=== PATIENT | female | born 1955 | race American Indian/Alaskan Native ===

== ENCOUNTER 2019-07-22 17:41 | Inpatient (IN) | payer MEDICARE ==
[2019-07-22] MEDS ORDERED: MORPHINE IV ONE (17:59)
--- NOTE | 2019-07-22 18:05 | Emergency Department Report ---
ED Chest Pain HPI - General Stated Complaint: CHEST PAIN Time Seen by Provider: 07/22/19 17:56 Source: patient, EMS Mode of arrival: Stretcher Limitations: No Limitations - History of Present Illness Initial Comments: Patient is a 63-year-old female that presents emergency room with complaints of chest pain. Patient states the chest pain is in her left chest. Patient states on [place]. Patient states the pain is 10 out of 10. Patient states she was given aspirin by EMS on the way here. Patient states she is currently at [facility] for psychiatric help. Patient states she uses cocaine at times. Patient states she is taking all of her medications. 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 Patient states had a CABG and stents. MD Complaint: chest pain -: Sudden Onset: during rest Pain Location: left chest Pain Radiation: none Severity: severe Severity scale (0 -10): 10 Quality: sharp Consistency: constant Improves With: rest Worsens With: exertion re: denies: nausea, vomting, diaphoresis, dyspnea, sense of impending doom Other Symptoms: denies: cough, fever, syncope, rash, acid taste in mouth, leg swelling, palpitations, burping Treatments Prior to Arrival: aspirin Aspirin use within the Past 7 Days: (1) Yes - Related Data On Oral Contraceptives: No Allergies Allergy/AdvReac Type Severity Reaction Status Date / Time Penicillins Allergy Unknown Verified 07/22/19 18:08 Heart Score - HEART Score History: Highly suspicious EKG: Non-specific Age: > 65 Risk factors: > 3 risk factors or hx of atherosclerotic disease Troponin: < normal limit HEART Score: 7 ED Review of Systems ROS: Stated complaint: CHEST PAIN Other details as noted in HPI Constitutional: denies: chills, fever Eyes: denies: eye pain, eye discharge, vision change ENT: denies: ear pain, throat pain Respiratory: denies: cough, shortness of breath, wheezing Cardiovascular: chest pain. denies: palpitations Endocrine: no symptoms reported Gastrointestinal: denies: abdominal pain, nausea, diarrhea Genitourinary: denies: urgency, dysuria, discharge Musculoskeletal: denies: back pain, joint swelling, arthralgia Skin: denies: rash, lesions Neurological: denies: headache, weakness, paresthesias Psychiatric: denies: anxiety, depression Hematological/Lymphatic: denies: easy bleeding, easy bruising ED Past Medical Hx - Past Medical History Previous Medical History?: Yes Hx Hypertension: Yes Hx Heart Attack/AMI: Yes - Surgical History Past Surgical History?: Yes Hx Coronary Stent: Yes Hx Open Heart Surgery: Yes - Family History Family history: no significant - Social History Smoking Status: Current Every Day Smoker Substance Use Type: Cocaine ED Physical Exam - General Limitations: No Limitations General appearance: alert, in no apparent distress - Head Head exam: Present: atraumatic, normocephalic - Eye Eye exam: Present: normal appearance - ENT ENT exam: Present: mucous membranes moist - Neck Neck exam: Present: normal inspection - Respiratory Respiratory exam: Present: normal lung sounds bilaterally. Absent: respiratory distress - Cardiovascular Cardiovascular Exam: Present: regular rate, normal rhythm. Absent: systolic mur mur, diastolic murmur, rubs, gallop - GI/Abdominal GI/Abdominal exam: Present: soft, normal bowel sounds - Extremities Exam Extremities exam: Present: normal inspection - Back Exam Back exam: Present: normal inspection - Neurological Exam Neurological exam: Present: alert, oriented X3 - Psychiatric Psychiatric exam: Present: normal affect, normal mood - Skin Skin exam: Present: warm, dry, intact, normal color. Absent: rash ED Course Vital Signs 07/22/19 07/22/19 17:48 18:06 Temperature 97.4 F L Pulse Rate 56 L Respiratory 14 14 Rate Blood Pressure 118/68 O2 Sat by Pulse 99 99 Oximetry - Reevaluation(s) Reevaluation #1: She states her pain is better. Patient resting in bed. I discussed results with patient. I discussed plan of care with patient. Patient agrees with plan of care and admission. Patient will be admitted to the hospital service. 07/22/19 19:40 - Consultations Consultation #1: Hospitalist consultation for admission. Hospitalist to admit patient. 07/22/19 19:40 SHAHEED score - Shaheed Score Age > 65: (1) Yes Aspirin use within the Past 7 Days: (1) Yes 3 or more CAD Risk Factors: (1) Yes 2 or more Angina events in past 24 hrs: (0) No Known CAD with more than 50% Stenosis: (0) No Elevated Cardiac Markers: (0) No ST Deviation Greater than 0.5mm: (0) No SHAHEED Score: 3 ED Medical Decision Making - Lab Data Result diagrams: 07/22/19 18:15 07/22/19 18:15 - EKG Data -: EKG Interpreted by Me EKG shows normal: sinus rhythm, axis, intervals, QRS complexes, ST-T waves Rate: bradycardia - Radiology Data Radiology results: image reviewed interpreted by me: No acute findings on chest x-ray. - Medical Decision Making Patient is a 63-year-old female that presents emergency room with complaints of chest pain. Patient has a history of cocaine use. Patient's labs unremarkable. Patient patient admitted to hospitalist service to rule out ACS. Patient's EKG shows bradycardia but within normal limits. Patient's UDS positive for cocaine.. - Differential Diagnosis cocaine use. Chest pain. ACS. Critical Care Time: Yes Critical care attestation.: If time is entered above; I have spent that time in minutes in the direct care of this critically ill patient, excluding procedure time. Critical Care Time: 35 minutes ED Disposition Clinical Impression: Cocaine abuse Chest pain Qualifiers: Chest pain type: unspecified Qualified Code(s): R07.9 - Chest pain, unspecified CAD (coronary artery disease) of artery bypass graft Qualifiers: Citizen [place] vs. transplanted heart: [place] heart Associated angina: angina presence unspecified Qualified Code(s): I25.810 - Atherosclerosis of coronary artery bypass graft(s) without angina pectoris Disposition: OP ADMIT IP TO THIS HOSP Is pt being admited?: Yes Does the pt Need Aspirin: No Condition: Critical Time of Disposition: 19:45
[2019-07-22 18:49] LABS: Bilirubin,Urine NEG (Negative); Blood,Urine NEG (Negative); Color,Urine Straw (Yellow); Protein,Urine <15 mg/dL mg/dL (Negative); RBC,Urine < 1.0 /HPF (0.0-6.0); Urobilinogen,Urine < 2.0 mg/dL (<2.0)
[2019-07-22] MEDS ORDERED: ZOFRAN IV ONE (18:57)
--- NOTE | 2019-07-22 18:59 | XRay Report ---
CHEST 1 VIEW INDICATION / CLINICAL INFORMATION: Chest Pain. COMPARISON: None available. FINDINGS: SUPPORT DEVICES: None. HEART / MEDIASTINUM: No significant abnormality. There has been prior median sternotomy. LUNGS / PLEURA: No significant pulmonary or pleural abnormality. No pneumothorax. ADDITIONAL FINDINGS: Bilateral nipple shadows are incidentally noted. IMPRESSION: 1 No acute abnormality. Signer Name: Elvin Saeed MD Signed: 07/22/2019 6:55 PM Workstation Name: [id number]
[2019-07-22] MEDS ORDERED: ZOFRAN ONE (19:01)
[2019-07-22 19:06] LABS: Alanine Aminotransferase 17 units/L (7-56); BUN/Creatinine Ratio 16; Blood Urea Nitrogen 13 mg/dL (7-17); Calcium 9.3 mg/dL (8.4-10.2); Hemolysis Index 28
[2019-07-22 19:08] LABS: Amphetamine Screen,Urine PRESUMPTIVE NEGATIVE; Benzodiazepines Screen,Urine PRESUMPTIVE NEGATIVE; Cannabinoid Screen,Urine PRESUMPTIVE NEGATIVE; Methadone Screen,Urine PRESUMPTIVE NEGATIVE; Opiate Screen,Urine PRESUMPTIVE NEGATIVE
[2019-07-22 19:24] LABS: Cocaine Screen,Urine PRESUMPTIVE POSITIVE
[2019-07-22 19:25] LABS: Hematocrit 35.8 % (30.3-42.9); Hemoglobin 11.5 gm/dl (10.1-14.3); Mean Corpuscular HGB Conc 32 % (30-34); Mean Corpuscular Volume 74 fl (79-97); Platelet Count 191 K/mm3 (140-440); Red Blood Count 4.83 M/mm3 (3.65-5.03); Red Cell Distribution Width 15.9 % (13.2-15.2)
[2019-07-22] MEDS ORDERED: SODIUM CHLORIDE FLUSH SYRINGE 10 ML IV PRN ×2 (21:11→21:28)
[2019-07-22 21:19] LABS: Basophils % (Manual) 0 % (0.0-1.8); Total Cells Counted 100
[2019-07-22 21:20] LABS: Hypochromasia 2+; Platelet Estimate Consistent w Auto
[2019-07-22 21:21] LABS: Target Cells Few
[2019-07-22] MEDS ORDERED: TYLENOL PO PRN (21:28)
[2019-07-22] MEDS ORDERED: ZOFRAN IV PRN (21:28)
[2019-07-22] MEDS: SODIUM CHLORIDE FLUSH SYRINGE 10 ML IV SCH (23:23)
--- NOTE | 2019-07-23 05:20 | History and Physical Report ---
History of Present Illness Date of examination: 07/22/19 Date of admission: 07/22/19 21:28 Chief complaint: chest pain History of present illness: Patient is a 63-year-old female with PMHx of CAD s/p sent/CABG 4 years ago, PVD, HTN, HDL who presents to the ER with complaints of chest pain x1 day. Patient is currently in a psych facility, she states that the chest pain started early this morning, it is located in the left substernal area with radiation to the s [place], the pain was a pressure-like pain. Pt states that she had similar pain in the past due to CAD, EMS was called and she was given aspirin with little relief. Patient pt admit to cocaine use at times, she reports nausea and headache, denies SOB, denies vomiting, denies palpitation, denies diaphoresis, denies dizziness. Pt was seen in the ER and admitted for chest pain. Past History Past Medical History: CAD, hypertension, hyperlipidemia Social history: other (cocaine use) Family history: no significant family history Medications and Allergies Allergies Allergy/AdvReac Type Severity Reaction Status Date / Time Penicillins Allergy Unknown Verified 07/22/19 18:08 Active Meds: Active Medications Acetaminophen (Tylenol) 650 mg PO Q4H PRN PRN Reason: Pain MILD(1-3)/Fever >100.5/WEATHERS Aspirin (Ecotrin) 325 mg PO QDAY [facility] Ondansetron HCl (Zofran) 4 mg IV Q8H PRN PRN Reason: Nausea And Vomiting Sodium Chloride (Sodium Chloride Flush Syringe 10 Ml) 10 ml IV PRN PRN PRN Reason: LINE FLUSH Sodium Chloride (Sodium Chloride Flush Syringe 10 Ml) 10 ml IV BID [facility] Last Admin: 07/22/19 23:23 Dose: 10 ml Documented by: Sodium Chloride (Sodium Chloride Flush Syringe 10 Ml) 10 ml IV PRN PRN PRN Reason: LINE FLUSH Review of Systems Cardiovascular: chest pain Gastrointestinal: nausea Exam - Constitutional Vitals: Temp Pulse Resp BP Pulse Ox 98.1 F 51 L 16 110/66 100 07/23/19 03:43 07/23/19 03:43 07/23/19 03:43 07/23/19 03:43 07/23/19 03:43 General appearance: Present: no acute distress - EENT Eyes: Present: EOM intact ENT: hearing intact - Neck Neck: Present: normal ROM - Respiratory Respiratory effort: normal Respiratory: bilateral: CTA - Extremities Extremities: no ischemia Peripheral Pulses: within normal limits - Abdominal General gastrointestinal: Present: non-tender, non-distended Female genitourinary: Present: deferred - Rectal Rectal Exam: deferred - Integumentary Integumentary: Present: warm, dry - Musculoskeletal Musculoskeletal: strength equal bilaterally - Psychiatric Psychiatric: cooperative - Neurologic Neurologic: moves all extremities Results - Labs CBC & Chem 7: 07/22/19 18:15 07/22/19 18:15 Labs: Laboratory Last Values WBC 5.5 K/mm3 (4.5-11.0) 07/22/19 18:15 RBC 4.83 M/mm3 (3.65-5.03) 07/22/19 18:15 Hgb 11.5 gm/dl (10.1-14.3) 07/22/19 18:15 Hct 35.8 % (30.3-42.9) 07/22/19 18:15 MCV 74 fl (79-97) L 07/22/19 18:15 MCH 24 pg (28-32) L 07/22/19 18:15 MCHC 32 % (30-34) 07/22/19 18:15 RDW 15.9 % (13.2-15.2) H 07/22/19 18:15 Plt Count 191 K/mm3 (140-440) 07/22/19 18:15 Lymph % (Auto) Compensator 07/22/19 18:15 Add Manual Diff Complete 07/22/19 18:15 Total Counted 100 07/22/19 18:15 Seg Neutrophils % Compensator 07/22/19 18:15 Seg Neuts % (Manual) 28.0 % (40.0-70.0) L 07/22/19 18:15 0 % 07/22/19 18:15 53.0 % (13.4-35.0) H 07/22/19 18:15 Reactive Lymphs % (Man) 7.0 % 07/22/19 18:15 9.0 % (0.0-7.3) H 07/22/19 18:15 2.0 % (0.0-4.3) 07/22/19 18:15 0 % (0.0-1.8) 07/22/19 18:15 1.0 % 07/22/19 18:15 0 % 07/22/19 18:15 0 % 07/22/19 18:15 0 % 07/22/19 18:15 Nucleated RBC % Not Reportable 07/22/19 18:15 Seg Neutrophils # Man 1.5 K/mm3 (1.8-7.7) L 07/22/19 18:15 Band Neutrophils # 0.0 K/mm3 07/22/19 18:15 2.9 K/mm3 (1.2-5.4) 07/22/19 18:15 Abs React Lymphs (Man) 0.4 K/mm3 07/22/19 18:15 0.5 K/mm3 (0.0-0.8) 07/22/19 18:15 0.1 K/mm3 (0.0-0.4) 07/22/19 18:15 0.0 K/mm3 (0.0-0.1) 07/22/19 18:15 0.1 K/mm3 07/22/19 18:15 0.0 K/mm3 07/22/19 18:15 0.0 K/mm3 07/22/19 18:15 Blast Cells # 0.0 K/mm3 07/22/19 18:15 WBC Morphology Not Reportable 07/22/19 18:15 Hypersegmented Neuts Not Reportable 07/22/19 18:15 Hyposegmented Neuts Not Reportable 07/22/19 18:15 Hypogranular Neuts Not Reportable 07/22/19 18:15 Not Reportable 07/22/19 18:15 Not Reportable 07/22/19 18:15 Not Reportable 07/22/19 18:15 Not Reportable 07/22/19 18:15 Not Reportable 07/22/19 18:15 Not Reportable 07/22/19 18:15 Consistent w auto 07/22/19 18:15 Not Reportable 07/22/19 18:15 Plt Clumps, EDTA Not Reportable 07/22/19 18:15 Not Reportable 07/22/19 18:15 Not Reportable 07/22/19 18:15 Not Reportable 07/22/19 18:15 Plt Morphology Comment Not Reportable 07/22/19 18:15 RBC Morphology Not Reportable 07/22/19 18:15 Dimorphic RBCs Not Reportable 07/22/19 18:15 Not Reportable 07/22/19 18:15 2+ 07/22/19 18:15 Not Reportable 07/22/19 18:15 Not Reportable 07/22/19 18:15 Not Reportable 07/22/19 18:15 Not Reportable 07/22/19 18:15 Not Reportable 07/22/19 18:15 Not Reportable 07/22/19 18:15 Not Reportable 07/22/19 18:15 Few 07/22/19 18:15 Not Reportable 07/22/19 18:15 Not Reportable 07/22/19 18:15 Not Reportable 07/22/19 18:15 Not Reportable 07/22/19 18:15 Not Reportable 07/22/19 18:15 Not Reportable 07/22/19 18:15 Not Reportable 07/22/19 18:15 Not Reportable 07/22/19 18:15 Few 07/22/19 18:15 Acanthocytes (Spur) Not Reportable 07/22/19 18:15 Rouleaux Not Reportable 07/22/19 18:15 Not Reportable 07/22/19 18:15 Not Reportable 07/22/19 18:15 Not Reportable 07/22/19 18:15 Not Reportable 07/22/19 18:15 Hem Pathologist Commnt No 07/22/19 18:15 Sodium 142 mmol/L (137-145) 07/22/19 18:15 Potassium 5.0 mmol/L (3.6-5.0) 07/22/19 18:15 Chloride 106.9 mmol/L (98-107) 07/22/19 18:15 Carbon Dioxide 25 mmol/L (22-30) 07/22/19 18:15 15 mmol/L 07/22/19 18:15 BUN 13 mg/dL (7-17) 07/22/19 18:15 0.8 mg/dL (0.7-1.2) 07/22/19 18:15 Estimated GFR > 60 ml/min 07/22/19 18:15 16 % 07/22/19 18:15 Glucose 92 mg/dL (65-100) 07/22/19 18:15 Calcium 9.3 mg/dL (8.4-10.2) 07/22/19 18:15 0.20 mg/dL (0.1-1.2) 07/22/19 18:15 AST 29 units/L (5-40) 07/22/19 18:15 ALT 17 units/L (7-56) 07/22/19 18:15 63 units/L (35-129) 07/22/19 18:15 < 0.010 ng/mL (0.00-0.029) 07/22/19 18:15 6.9 g/dL (6.3-8.2) 07/22/19 18:15 4.0 g/dL (3.9-5) 07/22/19 18:15 1.4 % 07/22/19 18:15 Straw (Yellow) 07/22/19 18:00 Clear (Clear) 07/22/19 18:00 5.0 (5.0-7.0) 07/22/19 18:00 Ur Specific [place] 1.004 (1.003-1.030) 07/22/19 18:00 <15 mg/dl mg/dL (Negative) 07/22/19 18:00 Neg mg/dL (Negative) 07/22/19 18:00 Neg mg/dL (Negative) 07/22/19 18:00 Neg (Negative) 07/22/19 18:00 Neg (Negative) 07/22/19 18:00 Neg (Negative) 07/22/19 18:00 < 2.0 mg/dL (<2.0) 07/22/19 18:00 Ur Leukocyte Esterase Neg (Negative) 07/22/19 18:00 1.0 /HPF (0.0-6.0) 07/22/19 18:00 < 1.0 /HPF (0.0-6.0) 07/22/19 18:00 U Epithel Cells (Auto) 1.0 /HPF (0-13.0) 07/22/19 18:00 Presumptive negative 07/22/19 18:00 Presumptive negative 07/22/19 18:00 Ur Barbiturates Screen Presumptive negative 07/22/19 18:00 Ur Phencyclidine Scrn Presumptive negative 07/22/19 18:00 Ur Amphetamines Screen Presumptive negative 07/22/19 18:00 U Benzodiazepines Scrn Presumptive negative 07/22/19 18:00 Presumptive positive 07/22/19 18:00 U Marijuana (THC) Screen Presumptive negative 07/22/19 18:00 Disclamer 07/22/19 18:00 Assessment and Plan Assessment and plan: 1. Chest pain r/o ACS 2. CAD s/p stent/CABG 3. PVD 4. HTN (BP stable) 5. HDL 6. H/o cocaine use disorder Plan Admitted to med/tele for chest pain Continue CE q6hr x 2 more Cardiac diet Consult cardiology for eval Resume home meds Plan of care d/w pt voiced understanding Advance Directives: Yes VTE prophylaxis?: Mechanical Contraindication Mechanical VTE Prophylaxis: Contraindicated (on anticoagulent) Plan of care discussed with patient/family: Yes
[2019-07-23 07:50] LABS: BUN/Creatinine Ratio 11; Blood Urea Nitrogen 11 mg/dL (7-17); Calcium 8.8 mg/dL (8.4-10.2); Chol/HDL Ratio 1.76 %; HDL Cholesterol 72 mg/dL (40-59); Hemolysis Index 1; LDL Cholesterol,Direct 56 mg/dL (50-130)
[2019-07-23] MEDS ORDERED: LEXISCAN IV ONE ×2 (08:11→08:15)
[2019-07-23 08:25] LABS: Hematocrit 32.4 % (30.3-42.9); Hemoglobin 10.5 gm/dl (10.1-14.3); Mean Corpuscular HGB Conc 32 % (30-34); Mean Corpuscular Volume 73 fl (79-97); Platelet Count 187 K/mm3 (140-440); Red Blood Count 4.43 M/mm3 (3.65-5.03); Red Cell Distribution Width 15.5 % (13.2-15.2)
[2019-07-23 08:37] LABS: Eosinophils # (Auto) 0.1 K/mm3 (0.0-0.4); Eosinophils % (Auto) 2.3 % (0.0-4.3); Monocytes # (Auto) 0.5 K/mm3 (0.0-0.8); Monocytes % (Auto) 13.1 % (0.0-7.3)
[2019-07-23 08:39] LABS: Lymphocytes # (Auto) 1.9 K/mm3 (1.2-5.4); Lymphocytes % (Auto) 47.1 % (13.4-35.0)
[2019-07-23] MEDS ORDERED: ECOTRIN PO SCH (10:00)
[2019-07-23] MEDS: SODIUM CHLORIDE FLUSH SYRINGE 10 ML IV SCH (10:50)
--- NOTE | 2019-07-23 12:35 | Discharge Summary ---
Providers - Providers Date of Admission: 07/22/19 21:28 Attending physician: JANIS KRAFT MD 07/22/19 Consult to Cardiac Rehabilitation [CONS] Routine Reason For Exam: Phase I 07/23/19 05:52 Consult to Physician [CONS] Routine Comment: Consulting Provider: ANTIONETTE FENG Physician Instructions: Reason For Exam: chest pain, h/o CAD s/p CABG Hospitalization Reason for admission: chest pain Condition: Critical Hospital course: Patient is a 63-year-old female with PMHx of CAD s/p sent/CABG 4 years ago, PVD, HTN, HDL who presents to the ER with complaints of chest pain x1 day. Patient is currently in a psych facility, she states that the chest pain started early this morning, it is located in the left substernal area with radiation to the shoulder, the pain was a pressure-like pain. Pt states that she had similar pain in the past due to CAD, EMS was called and she was given aspirin with little relief. Patient pt admit to cocaine use at times, she reports nausea and headache, denies SOB, denies vomiting, denies palpitation, denies diaphoresis, denies dizziness. Pt was seen in the ER and admitted for chest pain. * Patient underwent stress test that was negative for acute ischemic event. * Patient was evaluated by cardiology and strongly advised to quit cocain use totally. 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 wall WI HTN (BP stable) HDL Sinus Bradycardia-non symptomatic Anxiety Depression Cocaine use disorder Disposition: DC-01 TO HOME OR SELFCARE Time spent for discharge: 35 mins Core Measure Documentation - Palliative Care Palliative Care/ Comfort Measures: Not Applicable - Core Measures Any of the following diagnoses?: none Exam - Constitutional Vitals: Temp Pulse Resp BP Pulse Ox 98.1 F 55 L 18 138/51 100 07/23/19 07:30 07/23/19 07:34 07/23/19 07:30 07/23/19 10:08 07/23/19 07:30 General appearance: Present: no acute distress, well-nourished - EENT Eyes: Present: PERRL ENT: clear oral mucosa, poor dentition - Neck Neck: Present: supple, normal ROM - Respiratory Respiratory effort: normal Respiratory: bilateral: CTA - Cardiovascular Rhythm: regular Heart Sounds: Present: S1 & S2, systolic murmur (2/6) - Extremities Extremities: no ischemia, pulses intact, pulses symmetrical, No edema, normal temperature, normal color, Full ROM Peripheral Pulses: within normal limits - Abdominal General gastrointestinal: Present: soft, non-tender, non-distended, normal bowel sounds - Integumentary Integumentary: Present: warm, dry - Musculoskeletal Musculoskeletal: strength equal bilaterally - Psychiatric Psychiatric: appropriate mood/affect, intact judgment & insight, memory intact, cooperative - Neurologic Neurologic: CNII-XII intact, moves all extremities - Allied Health Allied health notes reviewed: nursing Plan Activity: advance as tolerated, fall precautions Diet: low fat Follow up with: CYNTHIA BROOKS [Other] - 3-5 Days Forms: Discharge Signature Page
--- NOTE | 2019-07-23 13:40 | Consultation ---
History of Present Illness Consult date: 07/23/19 Past History Past Medical History: CAD, hypertension, hyperlipidemia Social history: other (cocaine use) Family history: no significant family history Medications and Allergies Allergies Allergy/AdvReac Type Severity Reaction Status Date / Time Penicillins Allergy Unknown Verified 07/22/19 18:08 Home Medications Medication Instructions Recorded Confirmed Last Taken Type Amlodipine Besylate [Norvasc] 5 mg PO QDAY 07/23/19 07/23/19 Unknown History Aspirin 325 mg PO QDAY 07/23/19 07/23/19 Unknown History Carvedilol [Coreg] 3.125 mg PO BID 07/23/19 07/23/19 Unknown History Clopidogrel [Plavix] 75 mg PO QDAY 07/23/19 07/23/19 Unknown History Lisinopril [Zestril TAB] 20 mg PO QDAY 07/23/19 07/23/19 Unknown History Active Meds: Active Medications Acetaminophen (Tylenol) 650 mg PO Q4H PRN PRN Reason: Pain MILD(1-3)/Fever >100.5/WEATHERS Aspirin (Ecotrin) 325 mg PO QDAY [facility] Last Admin: 07/23/19 10:50 Dose: 325 mg Documented by: Atorvastatin Calcium (Lipitor) 10 mg PO QHS [facility] Ondansetron HCl (Zofran) 4 mg IV Q8H PRN PRN Reason: Nausea And Vomiting Sodium Chloride (Sodium Chloride Flush Syringe 10 Ml) 10 ml IV PRN PRN PRN Reason: LINE FLUSH Sodium Chloride (Sodium Chloride Flush Syringe 10 Ml) 10 ml IV BID [facility] Last Admin: 07/23/19 10:50 Dose: 10 ml Documented by: Sodium Chloride (Sodium Chloride Flush Syringe 10 Ml) 10 ml IV PRN PRN PRN Reason: LINE FLUSH Physical Examination Vital Signs Temp Pulse Resp BP Pulse Ox 97.4 F L 56 L 14 118/68 99 07/22/19 17:48 07/22/19 17:48 07/22/19 17:48 07/22/19 17:48 07/22/19 17:48 Results 07/23/19 06:50 07/23/19 06:50 Cardiac Enzymes 07/22/19 Range/Units 18:15 AST 29 (5-40) units/L Lipids 07/23/19 Range/Units 06:50 Triglycerides 63 (2-149) mg/dL Cholesterol 127 (50-199) mg/dL HDL Cholesterol 72 H (40-59) mg/dL Cholesterol/HDL Ratio 1.76 % CBC 07/22/19 07/23/19 Range/Units 18:15 06:50 WBC 5.5 4.0 L (4.5-11.0) K/mm3 RBC 4.83 4.43 (3.65-5.03) M/mm3 Hgb 11.5 10.5 (10.1-14.3) gm/dl Hct 35.8 32.4 (30.3-42.9) % Plt Count 191 187 (140-440) K/mm3 Lymph # 1.9 (1.2-5.4) K/mm3 [place] # 0.5 (0.0-0.8) K/mm3 Eos # 0.1 (0.0-0.4) K/mm3 Baso # 0.0 (0.0-0.1) K/mm3 Comprehensive Metabolic Panel 07/22/19 07/23/19 Range/Units 18:15 06:50 Sodium 142 142 (137-145) mmol/L Potassium 5.0 4.4 (3.6-5.0) mmol/L Chloride 106.9 105.2 (98-107) mmol/L Carbon Dioxide 25 27 (22-30) mmol/L BUN 13 11 (7-17) mg/dL Creatinine 0.8 1.0 (0.7-1.2) mg/dL Glucose 92 88 (65-100) mg/dL Calcium 9.3 8.8 (8.4-10.2) mg/dL AST 29 (5-40) units/L ALT 17 (7-56) units/L Alkaline Phosphatase 63 (35-129) units/L Total Protein 6.9 (6.3-8.2) g/dL Albumin 4.0 (3.9-5) g/dL Assessment and Plan Detailed Cardiology consult dictated.
[2019-07-23 17:08] VITALS: BP 115/48
--- NOTE | 2019-07-24 00:12 | Treadmill Report ---
LEXISCAN STRESS TEST REPORT AGE: 63. SEX: Female. REFERRING PHYSICIAN: Dr. Rufus Neville, hospitalist. SEEN BY: Dr. Thao. DESCRIPTION OF PROCEDURE: The patient received 10 mCi of technetium 99m Myoview intravenously under resting conditions. Resting myocardial perfusion scan was done. Subsequently, the patient underwent Lexiscan stress test as per the protocol. During Lexiscan stress, the patient received 28 mCi of technetium 99m Myoview intravenously. After 30-60 minutes, post stress images were done. Computerized reconstruction images was performed for analysis. The post-stress images did not reveal any perfusion abnormality. Gated study did not reveal any wall motion abnormality. Left ventricular ejection fraction was normal and was calculated to be 67%. The resting images were also normal. CONCLUSIONS: 1. No perfusion abnormality of the left ventricular myocardium was demonstrated in the resting as well as stress images obtained after the patient underwent Lexiscan stress test. 2. No wall motion abnormality. 3. Normal left ventricular ejection fraction of 67%. JOB# [id number] [facility]
--- NOTE | 2019-07-24 03:41 | Consultation ---
CARDIOLOGY CONSULTATION REFERRING PHYSICIAN: Dr. Neville, hospitalist. HISTORY OF PRESENT ILLNESS: A 63-year-old thin built, pleasant, -[place] woman with a history of old myocardial infarction, known coronary artery disease, history of 2 stents placement approximately 6 years ago and 1-vessel CABG surgery 4-1/2 years ago in [place], was admitted with left lateral chest pressure-like chest pain and also left shoulder pain radiating to the left arm for 2-3 days before admission. The patient admits she has used cocaine 2 days ago and her urine drug screen was positive for cocaine. She also had some mild shortness of breath and nausea. No vomiting. No palpitations, near-syncope or syncope. Serum troponins were negative and myocardial infarction has been ruled out. History of hypertension in the past, but her blood pressure is normal here. No history of diabetes mellitus. Her LDL is 56 and HDL is 72 with normal triglycerides during this admission. The patient underwent Delaney stress nuclear scan today. The myocardial perfusion scan was normal. No wall motion abnormality. Left ventricular ejection fraction was normal and was calculated to be 67%. PAST MEDICAL HISTORY: History of hypertension in the past, myocardial infarctions x 2 in the past, history of 2 stents 6 years ago, history of 1-vessel CABG surgery 4-1/2 years ago at a hospital in [place], [place]. She also had cholecystectomy and some abdominal surgery for ulcers in the past. SOCIAL HISTORY: She has been a chronic light smoker. At this time, she smokes 1 cigarette per day. History of cocaine abuse as described above. No history of alcoholic abuse. FAMILY HISTORY: One of her sisters of CAD and myocardial infarction 4 years ago. She was in her late 50s. One of her brothers in his 50s also had CAD and myocardial infarction. ALLERGIES: PENICILLIN. MEDICATIONS: Aspirin 325 mg p.o. daily. REVIEW OF SYSTEMS: CARDIOVASCULAR: As described in the history. NEUROLOGICAL: No history of TIA or CVA in the past. HEENT: Negative. PULMONARY: Negative. GASTROINTESTINAL SYSTEM: History of peptic ulcer syndrome in the past. BONE AND JOINTS: Negative. SKIN: Negative. Review of rest of the 10 systems is negative. PHYSICAL EXAMINATION: GENERAL: A 63-year-old thin built, pleasant, -[place] woman, not in distress. VITAL SIGNS: Pulse 55 per minute regular, blood pressure 138/51 mmHg, respirations 16 per minute. NEUROLOGIC: She is alert and oriented x 3. HEENT: Negative. NECK: Supple, no JVD, no bruit, no thyromegaly. CHEST WALL: Healed operative scar in the mid portion (history of CABG surgery). HEART: Point of maximum impulse slightly shifted laterally and is forcible in nature, no palpable thrills. Auscultation of heart reveals S1, S2 heard normally. Grade 2/6 harsh ejection systolic murmur is heard all over the precardium, more prominent over the base. No gallop, no rub. EXTREMITIES: Peripheral pulses felt. No edema. LUNGS: Bilateral air entry good and equal. No bronchial breathing. No wheezing. ABDOMEN: Soft, benign, bowel sounds heard. NEUROLOGIC: No focal neurological deficit. SKIN: Negative. BONE AND JOINTS: Negative. LABORATORY DATA: Troponins x 2 negative. Lipid profile as described in the history. Potassium 4.4, BUN and creatinine 11 and 1. Hemoglobin and hematocrit 10.5 and 32.4 respectively. WBC, platelet count within normal limits. EKG: Sinus bradycardia, old anteroseptal wall myocardial infarction. Repeat EKG revealed a heart rate of 53 per minute, otherwise same changes. Urine drug screen positive for cocaine. Chest x-ray 1 view, no acute abnormality, status post CABG. IMPRESSION: 1. 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 2. History of hypertension in the past. 3. Old myocardial infarction. 4. History of 2 stents placement in the past and also 1-vessel coronary artery bypass graft surgery in the past. 5. Sinus bradycardia. 6. Old anteroseptal wall myocardial infarction by EKG. 7. Normal Lexiscan stress nuclear scan with no wall motion abnormality. 8. The patient also gives history of anxiety and depression and she was in [facility] for psychiatric help. RECOMMENDATIONS: 1. To continue aspirin. 2. I strongly advised her to defer cocaine totally. 3. No beta-blockers because of cocaine-induced coronary spasm and also bradycardia. 4. I will start her on atorvastatin 10 mg p.o. daily. The patient can be discharged home from a cardiac standpoint. JOB# [id number] [facility]
== END 2019-07-23 17:26 | disposition home or self-care (01) | DRG 918 ==
LOC: ED 17:41 → 4A 21:28
PROVIDERS: ADMIT Internal Medicine; ATTEND Internal Medicine
DX: T40.5X1A Poisoning by cocaine, accidental (unintentional), initial encounter (principal); I25.2 Old myocardial infarction; F17.200 Nicotine dependence, unspecified, uncomplicated; F14.10 Cocaine abuse, uncomplicated; I73.9 Peripheral vascular disease, unspecified; Z95.1 Presence of aortocoronary bypass graft; Z95.5 Presence of coronary angioplasty implant and graft; Z88.0 Allergy status to penicillin; Z79.82 Long term (current) use of aspirin; R00.1 Bradycardia, unspecified; Y92.89 Other specified places as the place of occurrence of the external cause; I25.10 Atherosclerotic heart disease of native coronary artery without angina pectoris
CPT/HCPCS: 36415; 71045; 78452; 80048; 80053; 80061; 80307; 81001; 82962; 84484; 85007; 85025; 93005; 93010; 93017; 96374; 96375; G0378; A9502; J2270; J2405; J2785